=== PATIENT | female | born 1965 | race Caucasian/White ===

== ENCOUNTER 2020-11-01 16:04 | Emergency (ER) | payer OTHER, SELFPAY ==
[2020-11-01] VITALS (7 sets, daily range): BP systolic 132–156; BP diastolic 59–88; PULSE 70–98; RESP 10–20; TEMP 37.3; O2SAT 96–99; BMI 30.2
--- NOTE | 2020-11-01 | XR_ITS ---
EXAMINATION: XR HIP, LEFT CLINICAL INFORMATION: Left hip dislocation COMPARISON: None TECHNIQUE: AP films prior to and after reduction of the left hip. 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 No fracture of the visualized portions of the pelvis identified. On a single AP portable supine film of the left hip post reduction there is noted to have been reduction of the total hip arthroplasty on this single view. No acute fracture appreciated. XR/XR hip LT 1V IMPRESSION: Dislocation of left hip posterior components with reduction of the components on the second image.
--- NOTE | 2020-11-01 16:25 | XR_ITS ---
EXAMINATION: XR HIP, LEFT CLINICAL INFORMATION: Left hip dislocation COMPARISON: None TECHNIQUE: AP films prior to and after reduction of the left hip. 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 No fracture of the visualized portions of the pelvis identified. On a single AP portable supine film of the left hip post reduction there is noted to have been reduction of the total hip arthroplasty on this single view. No acute fracture appreciated. XR/XR hip LT 1V IMPRESSION: Dislocation of left hip posterior components with reduction of the components on the second image.
--- NOTE | 2020-11-01 16:39 | ED_ITS ---
HPI - Fall General Stated Complaint: hip pain Time Seen by Provider: 11/01/20 16:12 Source: EMS Mode of arrival: EMS Limitations: no limitations Related Data Allergies Allergy/AdvReac Type Severity Reaction Status Date / Time No Known Allergies Allergy Verified 11/01/20 16:18 [facility] Past Medical History Surgical History S/P hip replacement
--- NOTE | 2020-11-01 16:41 | ED_ITS ---
HPI - Extremity Injury (Lower) General Chief Complaint: Extremity Problem Stated Complaint: hip pain Time Seen by Provider: 11/01/20 16:12 Source: patient and EMS Mode of arrival: EMS Limitations: no limitations History of Present Illness HPI Narrative: Patient is status post left hip replacement in 07/08 was doing o andrea trying to stretch her left hip and all of a sudden she popped her left hip out . Clinically patient has left posterior hip dislocation no other injuries MD complaint: hip injury Related Data Allergies Allergy/AdvReac Type Severity Reaction Status Date / Time No Known Allergies Allergy Verified 11/01/20 16:18 Review of Systems Review of Systems: Yes all other systems are reviewed and are negative PMFSH Past Medical History Surgical History S/P hip replacement Social History Social History Smoked in Last 30 Days: No Use of substances other than those prescribed or required for medical reasons: No Advance Directives: No Advance Directives Information Provided: No Physical Exam Vital Signs: Vital Signs: Last Vital Signs Temp 99.2 F 11/01/20 16:31 Pulse 70 11/01/20 17:49 Resp 16 11/01/20 17:49 BP 137/73 11/01/20 17:49 Pulse Ox 98 11/01/20 17:49 Body Mass Index 30.2 Const: General: healthy appearing and acute distress severe Nutritional Appearance: average body habitus Orientation/consciousness: patient oriented x3 HENMT: Head: Yes normocephalic and Yes atraumatic Resp: Effort & Inspection: normal respiratory effort Auscultation: clear to auscultation bilaterally Cardio: Rate: regular rate Rhythm: regular rhythm Heart sounds: S1 normal heart sound present and S2 normal heart sound present GI: Inspection: Yes normal to inspection Palpation (GI): Soft to palpation and nontender Back/Spine/Pelvis: Thoracic/Lumbar Spine: thoracic and lumbar spine normal to inspection Skin: General skin exam: no rashes or lesions noted Neuro: General: patient oriented x3 and no focal motor deficits Extrem: Upper/lower leg/hip images: 1. Obvious deformity hip in flexion suggestive of posterior hip dislocation neurovascular intact Procedures Orthopedic Joint Reduction Joint #1: Time Out Performed: Yes Side: left Joint Reduction Location: hip Analgesia: procedural sedation Local Anesthesia: other anesthetic (Ketamine 100 mg IV) Technique used: traction/counter-traction Post-reduction neuro exam: intact Post-reduction vascular: intact Post Reduction X-Ray Obtained: Yes Post Reduction X-Ray Results: reduced Splint Applied: Yes (Left knee) Patient Tolerated Procedure: well MDM - Extremity Injury (Lower) MDM Narrative Medical decision making narrative: Patient with posterior L hip dislocation reduced under conscious sedation using ketamine post reduction x-ray was satisfactory with no fracture advised to follow with Orthopedic. Patient was able to ambulate in the ER without any assistance. Knee immobilizer applied to the left leg Imaging Data X-ray hip: Attestation: I personally reviewed and interpreted this imaging study as follows: Radiologist's impression: XR/XR hip LT 1V IMPRESSION: Dislocation of left hip posterior components with reduction of the components on the second image. Discharge Plan Discharge Clinical Impression: Hip dislocation, left Qualifiers: Encounter type: initial encounter Qualified Code(s): S73.005A - Unspecified dislocation of left hip, initial encounter Patient Disposition: Home, Self-Care Instructions: Hip Dislocation (ED) Additional Instructions: Wear knee brace to avoid hip flexion and external rotation rest to the left hip and follow-up with your orthopedic Ibuprofen for pain Interventions: ED Discharge Assessment Last Done: 11/01/20 18:54 Discharge Date/Time: 11/01/20 18:54
[2020-11-01] MEDS: ondansetron HCL 4 MG/2 ML VIAL IVPUSH (18:43)
== END 2020-11-01 18:54 | disposition home or self-care (01) ==
PROVIDERS: Emergency Provider Internal Medicine; PCP Internal Medicine
DX: M25.552 Pain in left hip (principal); T84.021A Dislocation of internal left hip prosthesis, initial encounter; Y79.8 Miscellaneous orthopedic devices associated with adverse incidents, not elsewhere classified; Y92.9 Unspecified place or not applicable
CPT/HCPCS: 27266; 73501; 96374; 96375; 99152; 99284; 99285; J2405